=== PATIENT | male | born 1950 | race Caucasian/White ===

== ENCOUNTER 2017-09-23 10:42 | Day surgery (SDC) | payer MEDICARE, OTHER, SELFPAY ==
[2017-09-23 11:06] VITALS: BP 134/89; PULSE 52; RESP 16; TEMP 36.8; O2SAT 97; BMI 24.7
--- NOTE | 2017-09-23 12:42 | RAD_ITS ---
PROCEDURE: Spinal cord stimulator placement. DATE OF EXAMINATION: September 23, 2017. FLUOROSCOPY TIME (if supplied): (1:48) minutes/seconds Intraoperative imaging provided for spinal cord stimulator placement.. RAD/Lumbar Spine 2 or 3 Views IMPRESSION: Fluoroscopic services provided for spinal cord stimulator placement. Electronically Signed: Manuel Barrios MD at 7:57 EDT Tel [phone], Service support ,
[2017-09-23] MEDS: Cefazolin 2 GM in 0.9% Normal Saline 100 ML IV (13:00)
[2017-09-23] MEDS: Bupiv/Epi 0.5% Mpf 30 ML Vial (14:17)
[2017-09-23 14:35] VITALS: BP 134/89; BP 161/93; PULSE 57; RESP 16; TEMP 36.4; O2SAT 98
[2017-09-23 14:45] VITALS: BP 134/89; BP 147/89; PULSE 57; RESP 16; O2SAT 97
[2017-09-23 15:00] VITALS: BP 134/89; BP 148/84; PULSE 57; RESP 16; O2SAT 98
[2017-09-23 15:15] VITALS: BP 134/89; BP 165/78; PULSE 55; RESP 16; TEMP 36.3; O2SAT 99
[2017-09-23 16:11] VITALS: BP 134/89
== END 2017-09-23 16:12 | disposition home or self-care (01) ==
LOC: SDC 10:42 → AC 10:44
PROVIDERS: Visit Provider Anesthesiology Pain Medicine
PROC: (CPT 63685; principal; 2017-09-23 12:05)
DX: M96.1 Postlaminectomy syndrome, not elsewhere classified (principal); M54.5 Low back pain; G89.29 Other chronic pain; M54.10 Radiculopathy, site unspecified; I10 Essential (primary) hypertension; Z79.891 Long term (current) use of opiate analgesic; Z79.899 Other long term (current) drug therapy
CPT/HCPCS: 63685; 95972; 72100; 76000; J3010; J7120; J2405

== ENCOUNTER → 2018-07-31 10:03 | Outpatient (CLI) | payer MEDICARE, OTHER, SELFPAY ==
--- NOTE | 2018-07-31 10:11 | RAD_ITS ---
STUDY: X-RAY - LUMBAR SPINE REASON FOR EXAM: Male, 68 years old. Back pain. Fusion separation. TECHNIQUE: 3 view(s) of the lumbar spine were obtained. COMPARISON: September 23, 2017. FINDINGS: Postoperative changes of posterior fusion L1-S1. Bilateral rods and pedicle screws. Multilevel laminectomies. Surgical hardware appears intact. There is a mild lumbar levoscoliosis. Disc space narrowing with marginal osteophytes T12-L1. Multilevel disc space narrowing lumbar spine. At L5-S1 there is disc space narrowing with vacuum disc. Spinal stimulator catheter overlying the lower thoracic spine. Generator is within the dorsal soft tissue on the left at approximately L3. The soft tissue structures are unremarkable. RAD/Lumbar Spine 2 or 3 Views IMPRESSION: Postoperative changes of posterior lumbar fusion. Multilevel degenerative changes. No hardware fracture identified. Electronically Signed: Eric Samayoa MD at 1:49 EST , Service support ,
== END ==
PROVIDERS: Referring Provider Anesthesiology Pain Medicine; Visit Provider Anesthesiology Pain Medicine
DX: M54.5 Low back pain (principal)
CPT/HCPCS: 72100

== ENCOUNTER → 2018-09-21 13:48 | Outpatient (CLI) | payer MEDICARE, OTHER, SELFPAY ==
--- NOTE | 2018-09-21 13:51 | CT_ITS ---
STUDY: CT LUMBAR SPINE WITHOUT CONTRAST REASON FOR EXAM: Male, 68 years old. Back pain RADIATION DOSAGE (If Supplied By Facility): CTDIvol = ( 17.21 ) mGy, DLP = ( 492.68 ) mGycm TECHNIQUE: The patient was scanned in a multi detector CT scanner. High resolution transaxial imaging was performed. Images were obtained from L1 to L5. Sagittal and coronal images were reconstructed. Individualized dose optimization techniques were used for this CT. COMPARISON: MRI 02/21/2017 FINDINGS: Levoconvex scoliosis. Diffuse degenerative disc and facet disease. Bilateral posterior pedicle fusions from L1 through S1. Screws are well seated within bone. No CT evidence of hardware failure. Thoracic spine stimulator. Aortic calcifications. Severe residual right foraminal stenosis at L5-S1. Moderate to severe residual right foraminal stenosis at L1-2. Severe residual left foraminal stenosis at L5-S1. Moderate to severe residual left foraminal stenosis at L1-2. No acute fractures are seen. Multiple laminectomies and posterior bone grafting. CT/Spine Lumbar without Contrast IMPRESSION: Multilevel degenerative disease as described. Moderate to severe bilateral foraminal stenoses at L1-2 and severe bilateral foraminal stenoses at L5-S1. No fractures or destructive osseous lesions are seen. No CT evidence of hardware failure. Electronically Signed: Jonathan Campbell MD at 23:16 EST Tel , Service support ,
== END ==
PROVIDERS: Referring Provider Anesthesiology Pain Medicine; Visit Provider Anesthesiology Pain Medicine
DX: M54.9 Dorsalgia, unspecified (principal)
CPT/HCPCS: 72131